=== PATIENT | female | born 1945 ===

== ENCOUNTER 2018-12-17 15:34 | Outpatient (REF) | payer MEDICARE, SELFPAY ==
[2018-12-17 19:44] LABS: Anion Gap 10.9 mmol/L (3-11); BUN 22 mg/dL (7-18); CO2 27.1 mmol/L (21.0-32.0); Calcium 9.3 mg/dL (8.5-10.1); Chloride 104 mmol/L (98-107); Glucose 106 mg/dL (70-100); Potassium 4.1 mmol/L (3.5-5.1); Sodium 142 mmol/L (136-145)
== END 2018-12-17 15:54 ==
LOC: LBN 15:34
PROVIDERS: PCP Internal Medicine; Visit Provider Internal Medicine Cardiovascular Disease
DX: I10 Essential (primary) hypertension (principal); I21.4 Non-ST elevation (NSTEMI) myocardial infarction; Z95.1 Presence of aortocoronary bypass graft
CPT/HCPCS: 80048